=== PATIENT | male | born 1970 | race Two or more races ===

== ENCOUNTER 2020-07-11 09:06 | Inpatient (IN) | payer MEDICAID, OTHER ==
[~2020-07-11] VITALS: Ht 165.1 cm; Wt 99.0 kg
[2020-07-11] MEDS ORDERED: PROMETHAZINE HCL 25 MG/ML 1ML IV ONE (10:15)
[2020-07-11] MEDS ORDERED: MORPHINE SULFATE INJECTION 2 MG/ML SYRG IV ONE (10:15)
[2020-07-11 10:25] LABS: Basophils # (auto) 0 10 ^3/uL (0-0.2); Basophils % (auto) 0.2 % (0.0-2.0); Eosinophils # (auto) 0 10 ^3/uL (0-0.8); Eosinophils % (auto) 0.1 % (0.0-7.0); Hematocrit 44.8 % (41.0-53.0); Hemoglobin 15.9 g/dL (13.5-17.5); Lymphocytes % (auto) 8.2 % (10.0-50.0); Mean Corpuscular Hemoglobin 29.2 pg (28.0-32.0); Mean Corpuscular Hgb Conc. 35.6 g/dL (32.0-36.0); Monocytes # (auto) 0.6 10 ^3/uL (0-1.3); Monocytes % (auto) 4.9 % (0.0-12.0); Neutrophils # (auto) 10.6 10 ^3/uL (1.6-8.6); Neutrophils % (auto) 86.6 % (37.0-80.0); Nucleated Red Blood Cells % 0.1 %; Red Blood Cells 5.46 10^6/uL (4.5-5.90); Red Cell Distribution Width 14.8 % (11.8-14.3); White Blood Cell 12.3 10^3/uL (4.4-10.8)
[2020-07-11] MEDS ORDERED: SODIUM CHLORIDE 0.9% 1,000 ML IV ONE (10:30)
[2020-07-11 10:42] LABS: Albumin 3.4 g/dL (3.4-5.0); Calcium 7.2 mg/dL (8.5-10.1); Magnesium 1.9 mg/dL (1.6-2.6)
[2020-07-11 10:49] LABS: Bilirubin, Total 1.2 mg/dL (0.2-1.0)
[2020-07-11 10:57] LABS: Potassium 4.8 mmol/L (3.5-5.1)
[2020-07-11 10:59] LABS: Urine Bacteria NONE SEEN /hpf (None Seen); Urine Blood TRACE /uL (Negative); Urine Specific Gravity 1.033 (1.001-1.035); Urine WBC 1 /hpf (0 - 3)
[2020-07-11] MEDS ORDERED: InsuLIN REG 1unit/0.01ml Soln (100units/ml) IV ONE ×2 (13:00→13:45)
[2020-07-11] MEDS ORDERED: NITROGLYCERIN 0.4 MG SL TAB SL PRN (13:15)
[2020-07-11] MEDS ORDERED: cefTRIAXone 1GM/50ML D5W 50 ML IV ONE (13:15)
[2020-07-11] MEDS ORDERED: PROMETHAZINE HCL 25 MG/ML 1ML IV PRN (13:15)
[2020-07-11] MEDS ORDERED: DEXTROSE (50%) 50ML SYRG IV PRN (13:15)
[2020-07-11] MEDS ORDERED: MORPHINE SULFATE INJECTION 2 MG/ML SYRG IV PRN ×3 (13:15)
[2020-07-11 13:29] LABS: BUN/Creatinine Ratio 13.8
[2020-07-11 13:42] LABS: Total Protein 7.6 g/dL (6.4-8.2)
[2020-07-11] MEDS: SODIUM CHLORIDE 0.9% 1,000 ML IV SCH (14:32)
[2020-07-11] MEDS: metroNIDAZOLE 500MG/100ML 100 ML IV SCH ×2 (14:32→21:42)
[2020-07-11 18:08] VITALS: BP 122/74
[2020-07-11] MEDS ORDERED: ACETAMINOPHEN 650 MG RECT SUPP PR PRN (18:15)
[2020-07-11] MEDS: ACCU-CHEK COMFORT CURVE STRIP VI SCH (18:31)
[2020-07-11] MEDS: InsuLIN REG 1unit/0.01ml Soln (100units/ml) SC SCH (18:32)
[2020-07-11] MEDS: FAMOTIDINE (10MG/ML) 2ML VL IV SCH (21:43)
[2020-07-11 22:00] VITALS: BP 107/72
[2020-07-12] MEDS: ACCU-CHEK COMFORT CURVE STRIP VI SCH ×5 (00:24→23:40)
[2020-07-12] MEDS: InsuLIN REG 1unit/0.01ml Soln (100units/ml) SC SCH ×5 (00:25→23:42)
[2020-07-12] MEDS: SODIUM CHLORIDE 0.9% 1,000 ML IV SCH ×5 (02:10→22:14)
[2020-07-12 04:57] LABS: Basophils # (auto) 0 10 ^3/uL (0-0.2); Basophils % (auto) 0.3 % (0.0-2.0); Eosinophils # (auto) 0 10 ^3/uL (0-0.8); Hematocrit 42.7 % (41.0-53.0); Hemoglobin 14.7 g/dL (13.5-17.5); Lymphocytes # (auto) 0.7 10 ^3/uL (0.4-5.4); Lymphocytes % (auto) 9.6 % (10.0-50.0); Mean Corpuscular Hemoglobin 28.7 pg (28.0-32.0); Mean Corpuscular Hgb Conc. 34.5 g/dL (32.0-36.0); Mean Corpuscular Volume 83.3 fL (80.0-100.0); Monocytes # (auto) 0.4 10 ^3/uL (0-1.3); Monocytes % (auto) 4.7 % (0.0-12.0); Neutrophils # (auto) 6.4 10 ^3/uL (1.6-8.6); Neutrophils % (auto) 85.4 % (37.0-80.0); Nucleated Red Blood Cells % 0.4 %; Red Blood Cells 5.13 10^6/uL (4.5-5.90); Red Cell Distribution Width 15.4 % (11.8-14.3); White Blood Cell 7.5 10^3/uL (4.4-10.8)
[2020-07-12 05:00] VITALS: BP 121/62
[2020-07-12 05:18] LABS: Albumin 2.7 g/dL (3.4-5.0); Calcium 6.9 mg/dL (8.5-10.1); Potassium 3.6 mmol/L (3.5-5.1)
[2020-07-12 05:23] LABS: Bilirubin, Total 0.9 mg/dL (0.2-1.0); Total Protein 7.2 g/dL (6.4-8.2)
[2020-07-12 06:11] LABS: BUN/Creatinine Ratio 17.6
[2020-07-12] MEDS: metroNIDAZOLE 500MG/100ML 100 ML IV SCH ×3 (06:31→22:16)
[2020-07-12 08:00] VITALS: BP 109/63
[2020-07-12] MEDS: cefTRIAXone 1GM/50ML D5W 50 ML IV SCH (08:50)
[2020-07-12] MEDS: FAMOTIDINE (10MG/ML) 2ML VL IV SCH (09:47)
[2020-07-12] MEDS ORDERED: PANTOPRAZOLE 40 MG/10 ML VIAL INJ IV ONE (11:45)
[2020-07-12 12:00] VITALS: BP 119/76
[2020-07-12 16:00] VITALS: BP 112/63
[2020-07-12 22:00] VITALS: BP 114/53
[2020-07-13 05:00] VITALS: BP 124/71
[2020-07-13] MEDS: SODIUM CHLORIDE 0.9% 1,000 ML IV SCH ×3 (05:08→15:47)
[2020-07-13] MEDS: metroNIDAZOLE 500MG/100ML 100 ML IV SCH ×3 (05:12→21:13)
[2020-07-13] MEDS: ACCU-CHEK COMFORT CURVE STRIP VI SCH ×3 (05:39→17:41)
[2020-07-13] MEDS: InsuLIN REG 1unit/0.01ml Soln (100units/ml) SC SCH ×3 (05:49→17:42)
[2020-07-13 06:11] LABS: Basophils # (auto) 0 10 ^3/uL (0-0.2); Basophils % (auto) 0.5 % (0.0-2.0); Eosinophils # (auto) 0 10 ^3/uL (0-0.8); Hematocrit 39.6 % (41.0-53.0); Hemoglobin 13.4 g/dL (13.5-17.5); Lymphocytes # (auto) 0.7 10 ^3/uL (0.4-5.4); Mean Corpuscular Hemoglobin 28.4 pg (28.0-32.0); Mean Corpuscular Hgb Conc. 33.9 g/dL (32.0-36.0); Mean Corpuscular Volume 83.8 fL (80.0-100.0); Monocytes # (auto) 0.3 10 ^3/uL (0-1.3); Monocytes % (auto) 5.7 % (0.0-12.0); Neutrophils # (auto) 4.5 10 ^3/uL (1.6-8.6); Neutrophils % (auto) 81.8 % (37.0-80.0); Nucleated Red Blood Cells % 0.2 %; Red Blood Cells 4.73 10^6/uL (4.5-5.90); Red Cell Distribution Width 15.2 % (11.8-14.3); White Blood Cell 5.5 10^3/uL (4.4-10.8)
[2020-07-13 06:37] LABS: Potassium 3.2 mmol/L (3.5-5.1)
[2020-07-13 06:44] LABS: Albumin 2.4 g/dL (3.4-5.0); BUN/Creatinine Ratio 25.8; Bilirubin, Total 0.9 mg/dL (0.2-1.0); Calcium 7.4 mg/dL (8.5-10.1); Total Protein 6.6 g/dL (6.4-8.2)
[2020-07-13 08:00] VITALS: BP 111/69
[2020-07-13] MEDS: PANTOPRAZOLE 40 MG/10 ML VIAL INJ IV SCH (09:59)
[2020-07-13] MEDS: cefTRIAXone 1GM/50ML D5W 50 ML IV SCH (09:59)
[2020-07-13] MEDS ORDERED: INSULIN LANTUS (GLARGINE) 1 /0.01ml (100units/ml) SC ONE (10:45)
[2020-07-13] MEDS ORDERED: POTASSIUM CHLORIDE 20 MEQ, LIDOCAINE 1% (LOCAL ANESTH.) 2 ML in SODIUM CHL 0.9% 100 ML IV ONE (11:00)
[2020-07-13 12:00] VITALS: BP 106/71
[2020-07-13 16:00] VITALS: BP 111/69
[2020-07-13 22:00] VITALS: BP 121/66
[2020-07-14] MEDS: ACCU-CHEK COMFORT CURVE STRIP VI SCH ×4 (00:03→17:17)
[2020-07-14] MEDS: InsuLIN REG 1unit/0.01ml Soln (100units/ml) SC SCH ×4 (00:04→17:21)
[2020-07-14] MEDS: SODIUM CHLORIDE 0.9% 1,000 ML IV SCH ×2 (02:18→06:19)
[2020-07-14 05:00] VITALS: BP 123/66
[2020-07-14 05:11] LABS: Basophils # (auto) 0 10 ^3/uL (0-0.2); Basophils % (auto) 0.6 % (0.0-2.0); Eosinophils # (auto) 0 10 ^3/uL (0-0.8); Eosinophils % (auto) 0.1 % (0.0-7.0); Hematocrit 39.1 % (41.0-53.0); Hemoglobin 12.9 g/dL (13.5-17.5); Lymphocytes # (auto) 0.9 10 ^3/uL (0.4-5.4); Lymphocytes % (auto) 15.5 % (10.0-50.0); Mean Corpuscular Hemoglobin 27.8 pg (28.0-32.0); Mean Corpuscular Hgb Conc. 33.1 g/dL (32.0-36.0); Monocytes # (auto) 0.4 10 ^3/uL (0-1.3); Monocytes % (auto) 7.8 % (0.0-12.0); Neutrophils # (auto) 4.3 10 ^3/uL (1.6-8.6); Nucleated Red Blood Cells % 0.1 %; Red Blood Cells 4.66 10^6/uL (4.5-5.90); White Blood Cell 5.7 10^3/uL (4.4-10.8)
[2020-07-14 05:32] LABS: Albumin 2.3 g/dL (3.4-5.0); Calcium 7.6 mg/dL (8.5-10.1); Potassium 3.3 mmol/L (3.5-5.1)
[2020-07-14 05:36] LABS: BUN/Creatinine Ratio 23.2; Bilirubin, Total 0.6 mg/dL (0.2-1.0); Total Protein 6.3 g/dL (6.4-8.2)
[2020-07-14] MEDS: metroNIDAZOLE 500MG/100ML 100 ML IV SCH ×3 (06:00→21:56)
[2020-07-14] MEDS: INSULIN LANTUS (GLARGINE) 1 /0.01ml (100units/ml) SC SCH (06:20)
[2020-07-14 09:00] VITALS: BP 130/61
[2020-07-14] MEDS: PANTOPRAZOLE 40 MG/10 ML VIAL INJ IV SCH (09:26)
[2020-07-14] MEDS: cefTRIAXone 1GM/50ML D5W 50 ML IV SCH (09:26)
[2020-07-14] MEDS ORDERED: POTASSIUM EFFERVESENT TAB 25 MEQ PO ONE (11:30)
[2020-07-14 13:00] VITALS: BP 126/72
[2020-07-14 17:00] VITALS: BP 123/61
[2020-07-14 22:00] VITALS: BP 119/67
[2020-07-15] MEDS: ACCU-CHEK COMFORT CURVE STRIP VI SCH ×3 (00:08→12:39)
[2020-07-15] MEDS: InsuLIN REG 1unit/0.01ml Soln (100units/ml) SC SCH ×3 (00:08→12:00)
[2020-07-15 05:00] VITALS: BP 122/73
[2020-07-15] MEDS: metroNIDAZOLE 500MG/100ML 100 ML IV SCH ×2 (05:29→13:54)
[2020-07-15] MEDS: INSULIN LANTUS (GLARGINE) 1 /0.01ml (100units/ml) SC SCH (05:31)
[2020-07-15 06:27] LABS: Basophils # (auto) 0 10 ^3/uL (0-0.2); Basophils % (auto) 0.3 % (0.0-2.0); Eosinophils # (auto) 0 10 ^3/uL (0-0.8); Eosinophils % (auto) 0.3 % (0.0-7.0); Hematocrit 38.7 % (41.0-53.0); Lymphocytes # (auto) 0.9 10 ^3/uL (0.4-5.4); Lymphocytes % (auto) 12.7 % (10.0-50.0); Mean Corpuscular Hemoglobin 27.9 pg (28.0-32.0); Mean Corpuscular Hgb Conc. 33.6 g/dL (32.0-36.0); Monocytes # (auto) 0.6 10 ^3/uL (0-1.3); Monocytes % (auto) 8.8 % (0.0-12.0); Neutrophils # (auto) 5.3 10 ^3/uL (1.6-8.6); Neutrophils % (auto) 77.9 % (37.0-80.0); Nucleated Red Blood Cells % 0.2 %; Red Blood Cells 4.67 10^6/uL (4.5-5.90); Red Cell Distribution Width 15.1 % (11.8-14.3); White Blood Cell 6.7 10^3/uL (4.4-10.8)
[2020-07-15 06:40] LABS: Calcium 7.5 mg/dL (8.5-10.1); Potassium 3.1 mmol/L (3.5-5.1)
[2020-07-15 06:42] LABS: BUN/Creatinine Ratio 23.4
[2020-07-15 09:00] VITALS: BP 130/79
[2020-07-15] MEDS: cefTRIAXone 1GM/50ML D5W 50 ML IV SCH (09:00)
[2020-07-15] MEDS: PANTOPRAZOLE 40 MG/10 ML VIAL INJ IV SCH (09:31)
[2020-07-15] MEDS ORDERED: METR500T PO (10:34)
[2020-07-15] MEDS ORDERED: METF-929 PO (10:34)
[2020-07-15] MEDS ORDERED: POTASSIUM EFFERVESENT TAB 25 MEQ GT ONE (10:45)
== END 2020-07-15 13:25 | disposition home or self-care (01) | DRG 282 ==
LOC: ER 09:06 → TELE 13:14 → TELE-WESTW 17:26
PROVIDERS: ADMIT Internal Medicine; ATTEND Internal Medicine Pulmonary Disease
DX: K85.92 Acute pancreatitis with infected necrosis, unspecified (principal); D69.6 Thrombocytopenia, unspecified; E44.0 Moderate protein-calorie malnutrition; R65.10 Systemic inflammatory response syndrome (SIRS) of non-infectious origin without acute organ dysfunction; K76.0 Fatty (change of) liver, not elsewhere classified; E83.51 Hypocalcemia; E11.65 Type 2 diabetes mellitus with hyperglycemia; Z20.822 Contact with and (suspected) exposure to COVID-19; E86.0 Dehydration; K40.90 Unilateral inguinal hernia, without obstruction or gangrene, not specified as recurrent; E87.6 Hypokalemia; E66.9 Obesity, unspecified; Z83.3 Family history of diabetes mellitus; Z68.34 Body mass index [BMI] 34.0-34.9, adult
CPT/HCPCS: 36415; 74176; 74181; 80048; 80053; 81001; 82150; 82465; 82962; 83036; 83690; 83735; 84443; 84478; 85025; 87045; 87426; 87427; 87493; 96365; 96366; 96375; 96376; C9113; G0378; J0696; J1815; J2001; J3490

== ENCOUNTER 2020-11-11 00:59 | Inpatient (IN) | payer MEDICAID ==
[~2020-11-11] VITALS: Ht 165.1 cm; Wt 93.3 kg
[~2020-11-11 00:59] MED LIST: METF-929 PO; METR500T PO
[2020-11-11 02:03] LABS: Basophils # (auto) 0.1 10 ^3/uL (0-0.2); Basophils % (auto) 0.6 % (0.0-2.0); Eosinophils # (auto) 0.1 10 ^3/uL (0-0.8); Eosinophils % (auto) 0.8 % (0.0-7.0); Hematocrit 44.5 % (41.0-53.0); Hemoglobin 15.8 g/dL (13.5-17.5); Lymphocytes # (auto) 1.3 10 ^3/uL (0.4-5.4); Lymphocytes % (auto) 15.2 % (10.0-50.0); Mean Corpuscular Hemoglobin 28.6 pg (28.0-32.0); Mean Corpuscular Hgb Conc. 35.4 g/dL (32.0-36.0); Mean Corpuscular Volume 80.6 fL (80.0-100.0); Monocytes # (auto) 0.5 10 ^3/uL (0-1.3); Monocytes % (auto) 6.3 % (0.0-12.0); Neutrophils # (auto) 6.6 10 ^3/uL (1.6-8.6); Neutrophils % (auto) 77.1 % (37.0-80.0); Nucleated Red Blood Cells % 0.2 %; Red Blood Cells 5.52 10^6/uL (4.5-5.90); Red Cell Distribution Width 14.6 % (11.8-14.3); White Blood Cell 8.5 10^3/uL (4.4-10.8)
[2020-11-11 02:19] LABS: Alanine Aminotransferase 37 U/L (16-61); Albumin 3.5 g/dL (3.4-5.0); Anion Gap 9 (5-15); Aspartate Aminotransferase 14 U/L (15-37); BUN/Creatinine Ratio 12.6; Blood Urea Nitrogen 12 mg/dL (7-18); Calcium 8.6 mg/dL (8.5-10.1); Carbon Dioxide 27 mmol/L (21-32); Chloride 98 mmol/L (98-107); GFR African American 108 mL/min; GFR Non-African American 90 mL/min; Glucose 231 mg/dL (74-106); Lipase 161 U/L (73-393); Potassium 4.1 mmol/L (3.5-5.1); Sodium 134 mmol/L (136-145)
[2020-11-11 02:27] LABS: Alkaline Phosphatase 101 U/L (45-117); Bilirubin, Total 1.4 mg/dL (0.2-1.0); Total Protein 8.2 g/dL (6.4-8.2)
[2020-11-11] MEDS ORDERED: MORPHINE SULFATE 4 MG/ML SYR/VIAL IV ONE (03:30)
[2020-11-11] MEDS ORDERED: ONDANSETRON HCL 4 MG/2 ML VIAL IV ONE (03:30)
[2020-11-11] MEDS ORDERED: PIPERACILLIN-TAZOB 3.375GM 100 ML IV ONE (03:30)
[2020-11-11] MEDS ORDERED: SODIUM CHLORIDE 0.9% 1,000 ML IV ONE (03:30)
[2020-11-11] MEDS ORDERED: ONDANSETRON HCL 4 MG/2 ML VIAL IV PRN (09:15)
[2020-11-11] MEDS ORDERED: ACETAMINOPHEN 500 MG TAB PO PRN (09:15)
[2020-11-11] MEDS ORDERED: NITROGLYCERIN 0.4 MG SL TAB SL PRN (09:15)
[2020-11-11] MEDS ORDERED: MORPHINE SULFATE INJECTION 2 MG/ML SYRG IV PRN ×2 (09:15)
[2020-11-11] MEDS ORDERED: DEXTROSE (50%) 50ML SYRG IV PRN (09:15)
[2020-11-11] MEDS: PANTOPRAZOLE 40 MG/10 ML VIAL INJ IV SCH (10:28)
[2020-11-11] MEDS: levoFLOXacin 500MG 100 ML IV SCH (10:45)
[2020-11-11] MEDS: InsuLIN REG 1unit/0.01ml Soln (100units/ml) SC SCH ×3 (11:30→21:28)
[2020-11-11] MEDS: ACCU-CHEK COMFORT CURVE STRIP VI SCH ×3 (12:04→21:05)
[2020-11-11] MEDS: metroNIDAZOLE 500MG/100ML 100 ML IV SCH ×2 (14:11→21:07)
[2020-11-11 17:00] VITALS: BP 111/68
[2020-11-11 22:00] VITALS: BP 109/64
[2020-11-12 05:00] VITALS: BP 116/69
[2020-11-12] MEDS: metroNIDAZOLE 500MG/100ML 100 ML IV SCH ×3 (06:32→22:06)
[2020-11-12] MEDS: ACCU-CHEK COMFORT CURVE STRIP VI SCH ×4 (06:33→22:06)
[2020-11-12] MEDS: InsuLIN REG 1unit/0.01ml Soln (100units/ml) SC SCH ×4 (06:38→22:10)
[2020-11-12 08:30] VITALS: BP 114/68
[2020-11-12] MEDS ORDERED: IOHEXOL 300 MG/ML 100ML BOTTLE IJ ONE (09:42)
[2020-11-12] MEDS: levoFLOXacin 500MG 100 ML IV SCH (09:57)
[2020-11-12] MEDS: PANTOPRAZOLE 40 MG/10 ML VIAL INJ IV SCH (09:58)
[2020-11-12 11:23] LABS: Hepatitis B Surface Antibody Negative
[2020-11-12 11:34] LABS: Thyroid Stimulating Hormone 1.5 uIU/mL (0.358-3.74)
[2020-11-12 13:00] VITALS: BP 103/68
[2020-11-12 14:27] LABS: Hepatitis B Surface Antigen Negative (Negative); Hepatitis C Antibody Negative (Negative)
[2020-11-12 17:04] VITALS: BP 107/63
[2020-11-12 22:00] VITALS: BP 109/74
[2020-11-13 05:30] VITALS: BP 111/68
[2020-11-13] MEDS: ACCU-CHEK COMFORT CURVE STRIP VI SCH ×4 (06:50→22:17)
[2020-11-13] MEDS: InsuLIN REG 1unit/0.01ml Soln (100units/ml) SC SCH ×4 (06:51→22:17)
[2020-11-13] MEDS: metroNIDAZOLE 500MG/100ML 100 ML IV SCH ×3 (06:57→22:11)
[2020-11-13 08:00] VITALS: BP 107/67
[2020-11-13 09:09] VITALS: BP 107/67
[2020-11-13] MEDS: levoFLOXacin 500MG 100 ML IV SCH (10:17)
[2020-11-13] MEDS: PANTOPRAZOLE 40 MG/10 ML VIAL INJ IV SCH (10:17)
[2020-11-13 16:50] VITALS: BP 102/67
[2020-11-13 22:00] VITALS: BP 117/74
[2020-11-14 05:00] VITALS: BP 117/78
[2020-11-14 05:32] LABS: Basophils # (auto) 0 10 ^3/uL (0-0.2); Basophils % (auto) 0.4 % (0.0-2.0); Eosinophils # (auto) 0.1 10 ^3/uL (0-0.8); Eosinophils % (auto) 1.8 % (0.0-7.0); Hematocrit 40.2 % (41.0-53.0); Hemoglobin 13.8 g/dL (13.5-17.5); Lymphocytes # (auto) 1.1 10 ^3/uL (0.4-5.4); Mean Corpuscular Hemoglobin 27.8 pg (28.0-32.0); Mean Corpuscular Hgb Conc. 34.3 g/dL (32.0-36.0); Mean Corpuscular Volume 80.8 fL (80.0-100.0); Monocytes # (auto) 0.3 10 ^3/uL (0-1.3); Monocytes % (auto) 6.9 % (0.0-12.0); Neutrophils # (auto) 2.9 10 ^3/uL (1.6-8.6); Neutrophils % (auto) 65.9 % (37.0-80.0); Nucleated Red Blood Cells % 0.1 %; Red Blood Cells 4.98 10^6/uL (4.5-5.90); Red Cell Distribution Width 14.3 % (11.8-14.3); White Blood Cell 4.4 10^3/uL (4.4-10.8)
[2020-11-14 05:46] LABS: Potassium 3.7 mmol/L (3.5-5.1)
[2020-11-14 05:56] LABS: BUN/Creatinine Ratio 17.1; Calcium 8.5 mg/dL (8.5-10.1)
[2020-11-14] MEDS: metroNIDAZOLE 500MG/100ML 100 ML IV SCH (06:25)
[2020-11-14] MEDS: ACCU-CHEK COMFORT CURVE STRIP VI SCH (06:47)
[2020-11-14] MEDS: InsuLIN REG 1unit/0.01ml Soln (100units/ml) SC SCH (06:47)
[2020-11-14 08:00] VITALS: BP 120/65
[2020-11-14 09:00] VITALS: BP 120/65
[2020-11-14] MEDS: PANTOPRAZOLE 40 MG/10 ML VIAL INJ IV SCH (09:30)
[2020-11-14] MEDS: levoFLOXacin 500MG 100 ML IV SCH (09:30)
== END 2020-11-14 11:11 | disposition home or self-care (01) | DRG 282 ==
LOC: ER 00:59 → OVERFLOW 09:04 → CENTRAL 12:32
PROVIDERS: ADMIT Nurse Practitioner Acute Care; ATTEND Family Medicine
DX: K85.90 Acute pancreatitis without necrosis or infection, unspecified (principal); D69.6 Thrombocytopenia, unspecified; K86.1 Other chronic pancreatitis; K43.9 Ventral hernia without obstruction or gangrene; E66.9 Obesity, unspecified; E11.65 Type 2 diabetes mellitus with hyperglycemia; Z20.822 Contact with and (suspected) exposure to COVID-19; K86.3 Pseudocyst of pancreas; R16.2 Hepatomegaly with splenomegaly, not elsewhere classified; Z79.84 Long term (current) use of oral hypoglycemic drugs; Z83.3 Family history of diabetes mellitus; Z68.36 Body mass index [BMI] 36.0-36.9, adult
CPT/HCPCS: 36415; 74176; 74177; 80048; 80053; 82378; 82607; 82962; 83036; 83605; 83615; 83690; 84443; 84484; 85025; 86301; 86706; 86803; 87040; 87340; 87426; 96365; 96366; 96368; 96375; C9113; G0378; J1815; J1956; J2405; J2543; J3490